=== PATIENT | female | born 1935 | race Caucasian/White ===

== ENCOUNTER → 2017-06-16 | Outpatient (CLI) | payer MEDICARE | LOC: GMAL 11:26 | PROVIDERS: ATTEND Family Medicine | DX: D51.3 Other dietary vitamin B12 deficiency anemia (principal); R53.83 Other fatigue; E55.9 Vitamin D deficiency, unspecified; E11.9 Type 2 diabetes mellitus without complications; Z79.899 Other long term (current) drug therapy ==

== ENCOUNTER 2017-06-25 06:25 | Emergency (ER) | payer MEDICARE ==
--- NOTE | 2017-06-25 06:56 | RAD ---
EXAM: AP CHEST RADIOGRAPH CLINICAL INDICATION: Near syncopal episode. COMPARISON: No comparison chest radiographs are currently available. FINDINGS: Cardiac size and pulmonary vasculature are normal. Lungs are clear. No pleural effusions or pneumothorax. No hilar or mediastinal lymphadenopathy. No mediastinal widening. No extraluminal bowel gas under the hemidiaphragms. Bones are intact on this single view. IMPRESSION: Normal portable AP chest radiograph. Electronically signed by: Jonatan Schmitt MD 06/25/2017 6:55 AM CDT
[2017-06-25] MEDS ORDERED: LORazepam 0.5 MG TAB PO ONE (07:06)
[2017-06-25] MEDS ORDERED: DEXAMETHASONE INJ 4 MG/ML VIAL IV ONE (07:06)
[2017-06-25] MEDS ORDERED: PROMETHAZINE HCL INJ 25 MG/ML VIAL IM ONE (07:06)
--- NOTE | 2017-06-25 08:02 | ED.PDOC ---
History of Present Illness - General Chief Complaint: General Stated Complaint: dizzy Time Seen by Provider: 06/25/17 07:05 Source: patient Exam Limitations: no limitations - History of Present Illness Initial Comments: Joyce Flores 81 y/o female stated that she felt dizzy while making her coffee standing up this am felt like she was spinning around,felt nauseated ,no blurry vision ,no weakness,no dysarthria,no tinnitus,no hearing loss,no history of fall.She felt better a while in er for few minutes. Has history dm2 on metformin Timing/Duration: 1-3 hours Severity: moderate Improving Factors: nothing Worsening Factors: nothing Associated Symptoms: other - see hpi Allergies/Adverse Reactions: Allergies Meperidine [From Demerol HCl] Allergy (Verified 07/04/14 16:48) Propoxyphene [From Darvon] Allergy (Verified 07/04/14 16:48) Sulfa Antibiotics Allergy (Verified 07/04/14 16:48) Home Medications: Ambulatory Orders Meclizine HCl [Meclizine 25] 25 mg PO Q6HRS PRN #30 tab 06/25/17 Review of Systems - Review of Systems Constitutional: States: no symptoms reported EENTM: States: no symptoms reported Respiratory: States: no symptoms reported Cardiology: States: no symptoms reported Neurological: States: see HPI All other Systems: Reviewed and Negative, No Change from Baseline Past Medical History (General) - Patient Medical History Hx Seizures: No Hx Stroke: No Hx Dementia: No Hx Asthma: No Hx Thyroid Disease: No Hx Diabetes: Yes Surgical History: appendectomy, cholecystectomy, gastric bypass, tonsillectomy, other - cataract - Vaccination History Hx Tetanus, Diphtheria Vaccination: No - Social History Hx Tobacco Use: Yes Years Tobacco Use: 50 Cigarettes Packs Per Day: 10 Hx Alcohol Use: No Hx Physical Abuse: No Hx Emotional Abuse: No Family Medical History - Family History Mother Family History: Unknown Hx Cardiac Disease: Yes Hx Family Cancer: Yes Hx Family;Other: thyroid disease -daughter Physical Exam - Physical Exam General Appearance: Alert, Comfortable, No apparent distress, Other - speech fluent Eye Exam: bilateral normal Ears, Nose, Throat: hearing grossly normal, normal ENT inspection Neck: full range of motion, supple, normal inspection Respiratory: chest non-tender, lungs clear, normal breath sounds Cardiovascular/Chest: normal peripheral pulses, regular rate, rhythm, no murmur Peripheral Pulses: radial,right: 2+, radial,left: 2+ Gastrointestinal/Abdominal: non tender, soft, no organomegaly Back Exam: normal inspection, no CVA tenderness, no vertebral tenderness Extremity: non-tender, no pedal edema, no calf tenderness 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, no motor/sensory deficits, alert, oriented x 3, other - able to walk w/o assistance,no abnormal nystagmus Skin Exam: normal color, warm/dry Lymphatic: no adenopathy Progress - Progress Progress: 06/25/17 08:22 Vital Signs - 24 hr 06/25/17 06/25/17 06:36 07:22 Temperature 96.4 F L Pulse Rate [ 81 77 left] Respiratory 18 20 Rate Blood Pressure 157/76 140/73 [left] O2 Sat by Pulse 99 94 L Oximetry - Results/Orders Results/Orders: 06/25/17 06:45 EKG STAT 06/25/17 07:06 IV Care:Saline Lock per Protoc QSHIFT 06/25/17 08:16 URINALYSIS Stat Laboratory Results - last 24 hr 06/25/17 06/25/17 07:03 07:03 WBC 7.0 RBC 4.81 Hgb 14.2 Hct 42.1 MCV 87.6 MCH 29.6 MCHC 33.8 RDW 14.1 Plt Count 202 MPV 7.5 Absolute Neuts (auto) 4.40 Absolute Lymphs (auto) 1.80 Absolute Monos (auto) 0.70 Absolute Eos (auto) 0.20 Absolute Basos (auto) 0.00 Neutrophils % 62.2 Lymphocytes % 25.1 Monocytes % 9.3 H Eosinophils % 3.2 Basophils % 0.2 Sodium 137 Potassium 4.2 Chloride 102 Carbon Dioxide 26 Anion Gap 13.2 BUN 13 Creatinine 0.84 BUN/Creatinine Ratio 15.5 Random Glucose 195 H Serum Osmolality 279.3 Calcium 9.9 Total Bilirubin 0.6 AST 20 ALT 13 Alkaline Phosphatase 70 Creatine Kinase 93 CK-MB (CK-2) 2.1 CK-MB (CK-2) % Not Reportable Troponin I < 0.02 Serum Total Protein 6.9 Albumin 3.9 Globulin 3.0 Albumin/Globulin Ratio 1.3 - EKG/XRAY/CT EKG: Sinus, nonspecific ST T wave Chg Comments: HR-74 Departure - Departure Clinical Impression: Dizziness, nonspecific Time of Disposition: 08:27 Disposition: Discharge to Home or Self Care Condition: Fair Departure Forms: ED Discharge - Pt. Copy, Patient Portal Self Enrollment Instructions: Combating Dizziness in Older Adults, Vertigo, DI for Dizziness- Nonvertigo Referrals: Angus Bang III, MD [Primary Care Provider] - 1-2 Weeks Prescriptions: Meclizine HCl [Meclizine 25] 25 mg PO Q6HRS PRN #30 tab PRN Reason: Dizziness Home Medications: Ambulatory Orders Meclizine HCl [Meclizine 25] 25 mg PO Q6HRS PRN #30 tab 06/25/17 Additional Instructions: Follow up with primary Md 26 Jun 2017 call for your appointment
[2017-06-25 08:48] VITALS: BP 158/70; TEMP 96.8; O2SAT 97
== END 2017-06-25 08:55 | disposition home or self-care (01) ==
LOC: ER 06:25
DX: R42 Dizziness and giddiness (principal); E11.9 Type 2 diabetes mellitus without complications; F17.210 Nicotine dependence, cigarettes, uncomplicated
CPT/HCPCS: 36415; 71045; 80053; 82550; 82553; 84484; 85025; 93005; J1100; J2550